=== PATIENT | male | born 1950 | race Hispanic/Latino ===

== ENCOUNTER 2019-01-21 17:16 | Emergency (ER) | payer MEDICARE, OTHER ==
[2019-01-21] MEDS ORDERED: IPRATROPIUM/ALBUTEROL SULFATE 3 ML AMPUL.NEB IH ONE (17:50)
[2019-01-21] MEDS ORDERED: HYDROcodone/ACETAMINOPHEN 5-325 MG TAB PO ONE (17:51)
[2019-01-21] MEDS ORDERED: SODIUM CHLORIDE 0.9% 1000 ML 1,000 ML IV ONE (17:51)
[2019-01-21] MEDS ORDERED: ASPIRIN 325 MG TAB PO ONE (17:51)
[2019-01-21] MEDS ORDERED: NITROGLYCERIN 2% OINT 1 GM TP ONE (17:51)
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
--- NOTE | 2019-01-21 18:23 | XRay Report ---
CHEST 1 VIEW 5:49 PM INDICATION / CLINICAL INFORMATION: Chest pain and pressure. COMPARISON: 01/13/2019. FINDINGS: SUPPORT DEVICES: None. HEART / MEDIASTINUM: The heart size and pulmonary vasculature are normal. The aorta is normal in sofy darnell. LUNGS / PLEURA: No significant pulmonary or pleural abnormality. No pneumothorax. ADDITIONAL FINDINGS: No significant additional findings. IMPRESSION: No acute abnormality or significant change. Signer Name: Jomar Trinidad MD Signed: 01/21/2019 6:19 PM Workstation Name: [id number]
[2019-01-21 18:36] LABS: Basophils % (Auto) 0.4 % (0.0-1.8); Eosinophils # (Auto) 0.1 K/mm3 (0.0-0.4); Hematocrit 37.8 % (35.5-45.6); Hemoglobin 12.4 gm/dl (11.8-15.2); Lymphocytes # (Auto) 1.6 K/mm3 (1.2-5.4); Lymphocytes % (Auto) 13.5 % (13.4-35.0); Mean Corpuscular HGB Conc 33 % (32-34); Mean Corpuscular Volume 94 fl (84-94); Monocytes # (Auto) 1.3 K/mm3 (0.0-0.8); Monocytes % (Auto) 10.8 % (0.0-7.3); Platelet Count 171 K/mm3 (140-440); Red Blood Count 4.04 M/mm3 (3.65-5.03); Red Cell Distribution Width 14.9 % (13.2-15.2)
[2019-01-21 18:46] LABS: INR 1.12 (0.87-1.13); Partial Thromboplastin Time 29.7 Sec. (24.2-36.6)
--- NOTE | 2019-01-21 19:00 | Event Note ---
Date: 01/21/19
[2019-01-21 19:10] LABS: Alanine Aminotransferase 13 units/L (7-56); Albumin 3.8 g/dL (3.9-5); BUN/Creatinine Ratio 23; Bilirubin,Direct 0.2 mg/dL (0-0.2); Blood Urea Nitrogen 25 mg/dL (9-20); Calcium 8.8 mg/dL (8.4-10.2); Hemolysis Index 2
[2019-01-21 20:51] LABS: Bilirubin,Urine NEG (Negative); Blood,Urine NEG (Negative); Color,Urine Yellow (Yellow); Mucus,Urine 2+ /HPF; Protein,Urine <15 mg/dL mg/dL (Negative); Urobilinogen,Urine < 2.0 mg/dL (<2.0)
[2019-01-21 21:04] LABS: Amphetamine Screen,Urine PRESUMPTIVE NEGATIVE; Benzodiazepines Screen,Urine PRESUMPTIVE NEGATIVE; Cannabinoid Screen,Urine PRESUMPTIVE NEGATIVE; Cocaine Screen,Urine PRESUMPTIVE NEGATIVE; Methadone Screen,Urine PRESUMPTIVE NEGATIVE; Opiate Screen,Urine PRESUMPTIVE NEGATIVE
[2019-01-21 21:43] VITALS: BP 128/56
== END 2019-01-21 21:05 | disposition admitted as inpatient to this hospital (09) ==
LOC: ED 17:16
DX: T67.5XXA Heat exhaustion, unspecified, initial encounter (principal); I11.0 Hypertensive heart disease with heart failure; I50.9 Heart failure, unspecified; Z59.0 Homelessness; J44.9 Chronic obstructive pulmonary disease, unspecified; Z87.891 Personal history of nicotine dependence; X58.XXXA Exposure to other specified factors, initial encounter; Z79.899 Other long term (current) drug therapy; Y93.89 Activity, other specified; Y92.89 Other specified places as the place of occurrence of the external cause; Y99.8 Other external cause status
CPT/HCPCS: 36415; 71045; 80048; 80076; 80307; 81001; 83735; 83880; 84484; 85025; 85610; 85730; 93005; 93010; 99285; J7030

== ENCOUNTER 2019-01-24 06:28 | Observation (INO) | payer MEDICARE ==
--- NOTE | 2019-01-24 07:23 | Cat Scan Report ---
CT HEAD WITHOUT CONTRAST INDICATION / CLINICAL INFORMATION: MAIN: LOSS OF CONSCIOUSNESS. FALL. HEADACHE. DIZZINESS.. TECHNIQUE: All CT scans at this location are performed using CT dose reduction for ALARA by means of automated e xposure control. COMPARISON: CT dated 02/15/15 FINDINGS: HEMORRHAGE: None. EXTRA-AXIAL SPACES: Prominent likely related to cortical atrophy. VENTRICULAR SYSTEM: Prominent likely related to central atrophy. No change. 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 No acute territorial in farct. MIDLINE SHIFT OR HERNIATION: None. CEREBELLUM / BRAINSTEM: No significant abnormality. ORBITS: Normal as visualized. SOFT TISSUES of HEAD: No significant abnormality. CALVARIUM: No significant abnormality. PARANASAL SINUSES / MASTOID AIR CELLS: No significant abnormality. ADDITIONAL FINDINGS: None. IMPRESSION: 1. No acute intracranial abnormality. 2. Chronic and age-related findings are unchanged. Signer Name: Dennis Lyon MD Signed: 01/24/2019 7:19 AM Workstation Name: [id number]
[2019-01-24 07:44] LABS: Basophils # (Auto) 0.1 K/mm3 (0.0-0.1); Basophils % (Auto) 0.8 % (0.0-1.8); Eosinophils # (Auto) 0.1 K/mm3 (0.0-0.4); Eosinophils % (Auto) 1.4 % (0.0-4.3); Hematocrit 36.8 % (35.5-45.6); Hemoglobin 12.3 gm/dl (11.8-15.2); Lymphocytes % (Auto) 13.4 % (13.4-35.0); Mean Corpuscular HGB Conc 33 % (32-34); Mean Corpuscular Volume 94 fl (84-94); Platelet Count 172 K/mm3 (140-440); Red Blood Count 3.93 M/mm3 (3.65-5.03); Red Cell Distribution Width 15.4 % (13.2-15.2)
[2019-01-24 07:55] LABS: INR 1.05 (0.87-1.13); Partial Thromboplastin Time 31.9 Sec. (24.2-36.6)
--- NOTE | 2019-01-24 08:11 | XRay Report ---
CHEST 2 VIEWS INDICATION: Difficulty in breathing. COMPARISON: 01/21/2019 FINDINGS: Support devices: None. Heart: Within normal limits. Lungs/pleura: The lungs are mildly hyperinflated but clear. No pleural effusion or pneumothorax is id entified. Additional findings: None. IMPRESSION: Mild hyperinflation. No acute process. Signer Name: Jona Horn Jr, MD Signed: 01/24/2019 8:07 AM Workstation Name: [id number]
[2019-01-24 08:19] LABS: Alanine Aminotransferase 14 units/L (7-56); Albumin 3.8 g/dL (3.9-5); BUN/Creatinine Ratio 19; Blood Urea Nitrogen 23 mg/dL (9-20); Calcium 8.5 mg/dL (8.4-10.2); Hemolysis Index 27
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
[2019-01-24] MEDS ORDERED: IPRATROPIUM/ALBUTEROL SULFATE 3 ML AMPUL.NEB IH ONE (08:30)
[2019-01-24] MEDS ORDERED: KETOROLAC 30 MG/1 ML INJ IV ONE (08:42)
[2019-01-24] MEDS ORDERED: FOLIC ACID 1 MG TAB PO ONE (08:44)
[2019-01-24] MEDS ORDERED: THIAMINE 100 MG TAB PO ONE (08:44)
--- NOTE | 2019-01-24 10:06 | History and Physical Report ---
History of Present Illness Date of examination: 01/24/19 Date of admission: 01/24/19 Chief complaint: Syncope History of present illness: Patient is a 68-year-old male with a past medical history of COPD, CHF, hypertension, past alcohol abuse, and past tobacco use (quit 3 months ago) currently homeless presents to the hospital with syncope. While in the ED the patient informed the triage Nursewas short of breath and unable to fill his received prescribed meds which include an inhaler He informas me that he actually passed out from a change in position He states he had a syncopal episode last night and has a persistent headache. He denies chest pain, shortness of breath, palpitations, nausea, vomiting, or diarrhea. [facility] is [facility] but is outside in hot weather during the daytime. He states he has not been eating or drinking much. Previous medical record review. Patient had a recent cardiac workup performed here at the end of December including CT angiogram chest and stress test. Patient states his last alcohol intake was several months ago. Patient has a sensation that answer crawling on his head and face. Initial work up in the ED was unremarkable except that the patient was lethargic Past History Past Medical History: COPD, hypertension, other (homeless) Past Surgical History: No surgical history Social history: no significant social history, full code, other (homeless). denies: smoking, alcohol abuse Family history: no significant family history Medications and Allergies Allergies Allergy/AdvReac Type Severity Reaction Status Date / Time No Known Allergies Allergy Verified 01/24/19 06:37 Home Medications Medication Instructions Recorded Confirmed Last Taken Type ALBUTEROL Inhaler (OR & NICU) 2 puff IH QID PRN #1 container 01/17/19 01/24/19 Unknown Rx [ProAir HFA Inhaler] Famotidine [Pepcid] 20 mg PO BID #30 tablet 01/17/19 01/24/19 Unknown Rx Nicotine [Habitrol] 21 mg TD QDAY #30 patch 01/17/19 01/24/19 Unknown Rx Carvedilol [Coreg] 3.125 mg PO BID #30 tablet 01/25/19 Unknown Rx Review of Systems All systems: negative Constitutional: fatigue, weakness, lethargy, poor appetite, no weight loss, no weight gain, no fever, no chills, no malaise Cardiovascular: no chest pain, no orthopnea, no palpitations, no rapid/irregular heart beat, no edema, no lightheadedness, no shortness of breath Respiratory: no cough, no cough with sputum, no excessive sputum, no hemoptysis, no shortness of breath, no dyspnea on exertion, no congestion, no wheezing Gastrointestinal: no abdominal pain, no nausea, no vomiting, no change in bowel habits, no melena Genitourinary Male: no dysuria, no discharge, no urinary hesitancy, no nocturia, no difficulties fathering child Musculoskeletal: no neck pain, no arm numbness/tingling, no leg numbness/tingling, no muscle cramps Integumentary: rash, no wounds, no jaundice, no bullae, no darkening of skin, no depigmentation, no striae, no foot/leg ulcers Neurological: no paralysis, no numbness, no syncope, no tremors, no migraines, no tic, no change in mentation, no memory loss, no sensory deficit, no hearing difficulties Psychiatric: no change in sleep habits, no change in appetite, no suicidal ideation, no hopelessness, no difficulties concentrating, no sa dness/tearfullness Endocrine: no cold intolerance Exam - Constitutional Vitals: Temp Pulse Resp BP Pulse Ox 98.7 F 66 12 148/70 99 01/24/19 08:33 01/24/19 08:37 01/24/19 08:37 01/24/19 08:33 01/24/19 08:33 General appearance: Present: no acute distress, disheveled - EENT Eyes: Present: PERRL, EOM intact ENT: hearing intact, clear oral mucosa, poor dentition - Neck Neck: Present: supple, normal ROM - Respiratory Respiratory effort: normal Respiratory: bilateral: CTA - Cardiovascular Rhythm: regular Heart Sounds: Present: S1 & S2. Absent: gallop, systolic murmur - Extremities Extremities: no ischemia, pulses intact, pulses symmetrical, No edema, normal temperature, abnormal Peripheral Pulses: within normal limits - Abdominal General gastrointestinal: Present: soft, non-tender, non-distended, normal bowel sounds - Integumentary Integumentary: Present: warm, dry - Musculoskeletal Musculoskeletal: strength equal bilaterally, generalized weakness - Psychiatric Psychiatric: appropriate mood/affect, intact judgment & insight, memory intact - Neurologic Neurologic: CNII-XII intact, moves all extremities - Allied Health Allied health notes reviewed: nursing Results - Labs CBC & Chem 7: 01/25/19 05:23 01/25/19 05:23 Labs: Laboratory Last Values WBC 7.6 K/mm3 (4.5-11.0) 01/24/19 07:24 RBC 3.93 M/mm3 (3.65-5.03) 01/24/19 07:24 Hgb 12.3 gm/dl (11.8-15.2) 01/24/19 07:24 Hct 36.8 % (35.5-45.6) 01/24/19 07:24 MCV 94 fl (84-94) 01/24/19 07:24 MCH 31 pg (28-32) 01/24/19 07:24 MCHC 33 % (32-34) 01/24/19 07:24 RDW 15.4 % (13.2-15.2) H 01/24/19 07:24 Plt Count 172 K/mm3 (140-440) 01/24/19 07:24 Lymph % (Auto) 13.4 % (13.4-35.0) 01/24/19 07:24 [place] % (Auto) 13.0 % (0.0-7.3) H 01/24/19 07:24 Eos % (Auto) 1.4 % (0.0-4.3) 01/24/19 07:24 Baso % (Auto) 0.8 % (0.0-1.8) 01/24/19 07:24 Lymph # 1.0 K/mm3 (1.2-5.4) L 01/24/19 07:24 [place] # 1.0 K/mm3 (0.0-0.8) H 01/24/19 07:24 Eos # 0.1 K/mm3 (0.0-0.4) 01/24/19 07:24 Baso # 0.1 K/mm3 (0.0-0.1) 01/24/19 07:24 Seg Neutrophils % 71.4 % (40.0-70.0) H 01/24/19 07:24 Seg Neutrophils # 5.4 K/mm3 (1.8-7.7) 01/24/19 07:24 PT 13.4 Sec. (12.2-14.9) 01/24/19 07:24 INR 1.05 (0.87-1.13) 01/24/19 07:24 APTT 31.9 Sec. (24.2-36.6) 01/24/19 07:24 Sodium 145 mmol/L (137-145) 01/24/19 07:24 Potassium 4.1 mmol/L (3.6-5.0) 01/24/19 07:24 Chloride 107.2 mmol/L (98-107) H 01/24/19 07:24 Carbon Dioxide 26 mmol/L (22-30) 01/24/19 07:24 Anion Gap 16 mmol/L 01/24/19 07:24 BUN 23 mg/dL (9-20) H 01/24/19 07:24 Creatinine 1.2 mg/dL (0.8-1.5) 01/24/19 07:24 Estimated GFR > 60 ml/min 01/24/19 07:24 BUN/Creatinine Ratio 19 % 01/24/19 07:24 Glucose 106 mg/dL (75-100) H 01/24/19 07:24 Calcium 8.5 mg/dL (8.4-10.2) 01/24/19 07:24 Total Bilirubin 0.40 mg/dL (0.1-1.2) 01/24/19 07:24 AST 15 units/L (5-40) 01/24/19 07:24 ALT 14 units/L (7-56) 01/24/19 07:24 Alkaline Phosphatase 80 units/L (35-129) 01/24/19 07:24 Troponin T < 0.010 ng/mL (0.00-0.029) 01/24/19 07:24 NT-Pro-B Natriuret Pep 616.1 pg/mL (0-900) 01/24/19 07:24 Total Protein 5.8 g/dL (6.3-8.2) L 01/24/19 07:24 Albumin 3.8 g/dL (3.9-5) L 01/24/19 07:24 Albumin/Globulin Ratio 1.9 % 01/24/19 07:24 Plasma/Serum Alcohol < 0.01 % (0-0.07) 01/24/19 07:24 Assessment and Plan Assessment and plan: Patient is a 68-year-old male with a past medical history of COPD, CHF, hyper tension, past alcohol abuse, and past tobacco use (quit 3 months ago) currently homeless presents to the hospital with syncope. While in the ED the patient informed the triage Nursewas short of breath and unable to fill his received prescribed meds which include an inhaler He informas me that he actually passed out from a change in position He states he had a syncopal episode last night and has a persistent headache. He denies chest pain, shortness of breath, palpitations, nausea, vomiting, or diarrhea. [facility] is [facility] but is outside in hot weather during the daytime. He states he has not been eating or drinking much. Previous medical record review. Patient had a recent cardiac workup performed here at the end of December including CT angiogram chest and stress test. Patient states his last alcohol intake was several months ago. Patient has a sensation that answer crawling on his head and face. Initial work up in the ED was unremarkable except that the patient was lethargic Syncope COPD HTN CHF Plan Admit to [facility] unit Resume home meds Hydrate patient Obtain echo cardiogram Cardiology eval Advance Directives: Yes Plan of care discussed with patient/family: Yes
[2019-01-24] MEDS ORDERED: ALBUTEROL 8.5 GM INHALATION IH PRN (10:08)
[2019-01-24] MEDS ORDERED: ACETAMINOPHEN 325 MG TAB PO PRN (10:08)
[2019-01-24] MEDS ORDERED: ALBUTEROL 2.5 MG/3 ML NEBU IH PRN (10:08)
[2019-01-24] MEDS ORDERED: ONDANSETRON 4 MG/2 ML INJ IV PRN (10:08)
--- NOTE | 2019-01-24 10:55 | Consultation ---
History of Present Illness Consult date: 01/24/19 Requesting physician: DECLAN RODRIGUEZ Consult reason: syncope History of present illness: The pt is a 68-year-old male with a past medical history of COPD, HTN, past alcohol abuse, and past tobacco use (quit 3 months ago). He is currently homeless. He presented for evaluation following syncopal episode. Pt states he was outside all day yesterday in the heat. He was sitting outside [place] [facility] and bent over to potato picker his hat when he suddenly lost consciousness. He denies any occurrence of chest pain, palpitations, n/v or dizziness. He reports SOB which is chronic secondary to COPD and unchanged from baseline. He only remembers feeling very hot and then waking up on the ground. He did sustain an abrasion to his nose during the fall. He thinks he was unconscious for approx 1 minute. When he awoke, he noted a headache which persisted through the night. He states he has not been eating or drinking much as he cannot afford food or water. Of note, he was discharged from [facility] on 01/17 following eval/treatment for COPD exacerbation and chest pain. He underwent lexiscan MPI stress test on 01/17 which was negative. Echo done 09/2015 showed EF 55-60%. Past History Past Medical History: COPD, hypertension Social history: smoking (former), alcohol abuse (former) Medications and Allergies Allergies Allergy/AdvReac Type Severity Reaction Status Date / Time No Known Allergies Allergy Verified 01/24/19 06:37 Home Medications Medication Instructions Recorded Confirmed Last Taken Type ALBUTEROL Inhaler (OR & NICU) 2 puff IH QID PRN #1 container 01/17/19 Unknown Rx [ProAir HFA Inhaler] Famotidine [Pepcid] 20 mg PO BID #30 tablet 01/17/19 Unknown Rx Nicotine [Habitrol] 21 mg TD QDAY #30 patch 01/17/19 Unknown Rx Active Meds: Active Medications Acetaminophen (Tylenol) 650 mg PO Q4H PRN PRN Reason: Pain MILD(1-3)/Fever >100.5/RANDLE Albuterol (Proair) 2 puff IH QID PRN PRN Reason: Shortness Of Breath Albuterol (Proventil) 2.5 mg IH Q3HRT PRN PRN Reason: Shortness Of Breath Budesonide (Pulmicort) 0.5 mg IH Q12HRT [facility] Famotidine (Pepcid) 20 mg PO BID PHILIPP Nicotine (Habitrol) 21 mg TD QDAY [facility] Ondansetron HCl (Zofran) 4 mg IV Q8H PRN PRN Reason: Nausea And Vomiting Sodium Chloride (Sodium Chloride Flush Syringe 10 Ml) 10 ml IV BID [facility] Sodium Chloride (Sodium Chloride Flush Syringe 10 Ml) 10 ml IV PRN PRN PRN Reason: LINE FLUSH Review of Systems Constitutional: no weight loss, no weight gain, no fever, no chills Ears, nose, mouth and throat: no ear pain, no nose pain, no sinus pressure, no sinus pain Cardiovascular: syncope, shortness of breath (chronic), dyspnea on exertion (chronic), no chest pain, no orthopnea, no palpitations, no rapid/irregular heart beat, no edema, no lightheadedness, no paroxysmal nocturnal dyspnea Respiratory: shortness of breath (chronic), dyspnea on exertion (chronic), no cough, no congestion, no wheezing, no pain on inspiration Genitourinary Male: no dysuria, no hematuria, no flank pain, no discharge, no urinary frequency, no urinary hesitancy Musculoskeletal: no neck stiffness, no neck pain, no shooting arm pain, no arm numbness/tingling, no low back pain, no shooting leg pain Integumentary: no rash, no pruritis, no redness, no sores, no wounds Neurological: syncope, no head injury, no paralysis, no weakness, no parathesias, no numbness, no tingling, no seizures Psychiatric: no anxiety Endocrine: no cold intolerance, no heat intolerance Hematologic/Lymphatic: no easy bruising, no easy bleeding Allergic/Immunologic: no urticaria, no wheezing Physical Examination Vital Signs Temp Pulse Resp BP Pulse Ox 97.7 F 84 20 132/69 95 01/24/19 06:30 01/24/19 06:30 01/24/19 06:30 01/24/19 06:30 01/24/19 06:30 General appearance: no acute distress HEENT: Positive: PERRL, Normocephaly, Mucus Membranes Moist Neck: Positive: neck supple, trachea midline Cardiac: Positive: Reg Rate and Rhythm, S1/S2 Lungs: Positive: Decreased Breath Sounds Neuro: Positive: Grossly Intact Abdomen: Negative: Tender Skin: Positive: Other (abrasion on nose). Negative: Rash Musculoskeletal: No Pain Extremities: Absent: edema Results 01/24/19 07:24 01/24/19 07:24 Cardiac Enzymes 01/24/19 Range/Units 07:24 AST 15 (5-40) units/L Coagulation 01/24/19 Range/Units 07:24 PT 13.4 (12.2-14.9) Sec. INR 1.05 (0.87-1.13) APTT 31.9 (24.2-36.6) Sec. CBC 01/24/19 Range/Units 07:24 WBC 7.6 (4.5-11.0) K/mm3 RBC 3.93 (3.65-5.03) M/mm3 Hgb 12.3 (11.8-15.2) gm/dl Hct 36.8 (35.5-45.6) % Plt Count 172 (140-440) K/mm3 Lymph # 1.0 L (1.2-5.4) K/mm3 [place] # 1.0 H (0.0-0.8) K/mm3 Eos # 0.1 (0.0-0.4) K/mm3 Baso # 0.1 (0.0-0.1) K/mm3 Comprehensive Metabolic Panel 01/24/19 Range/Units 07:24 Sodium 145 (137-145) mmol/L Potassium 4.1 (3.6-5.0) mmol/L Chloride 107.2 H (98-107) mmol/L Carbon Dioxide 26 (22-30) mmol/L BUN 23 H (9-20) mg/dL Creatinine 1.2 (0.8-1.5) mg/dL Glucose 106 H (75-100) mg/dL Calcium 8.5 (8.4-10.2) mg/dL AST 15 (5-40) units/L ALT 14 (7-56) units/L Alkaline Phosphatase 80 (35-129) units/L Total Protein 5.8 L (6.3-8.2) g/dL Albumin 3.8 L (3.9-5) g/dL - Imaging and Cardiology Echo: report reviewed (09/2015 showed EF 55-60%. ) EKG: report reviewed, image reviewed EKG interpretations - Telemetry EKG Rhythm: Sinus Rhythm - EKG Sinus rhythms and dysrhythmias: sinus rhythm Assessment and Plan Syncope Suspect secondary to heat and dehydration. Head CT with NAF. Trop negative for AMI x 1. ECG with NAF. Lexiscan MPI stress test on 01/17/2019 was negative. Obtain echo. HTN COPD H/o ETOH use and tobacco use Homelessness The patient has been seen in conjunction with Dr. Dahl who agrees with the assessment and plan of care.
[2019-01-24] MEDS: BUDESONIDE 0.5 MG/2 ML NEBU IH SCH (20:04)
[2019-01-24] MEDS: FAMOTIDINE 20 MG TAB PO SCH (21:39)
[2019-01-25 06:31] LABS: Basophils % (Auto) 0.3 % (0.0-1.8); Eosinophils # (Auto) 0.1 K/mm3 (0.0-0.4); Eosinophils % (Auto) 1.8 % (0.0-4.3); Hematocrit 33.9 % (35.5-45.6); Hemoglobin 11.5 gm/dl (11.8-15.2); Lymphocytes # (Auto) 1.2 K/mm3 (1.2-5.4); Lymphocytes % (Auto) 16.5 % (13.4-35.0); Mean Corpuscular HGB Conc 34 % (32-34); Mean Corpuscular Volume 93 fl (84-94); Monocytes # (Auto) 0.7 K/mm3 (0.0-0.8); Monocytes % (Auto) 9.4 % (0.0-7.3); Platelet Count 158 K/mm3 (140-440); Red Blood Count 3.65 M/mm3 (3.65-5.03); Red Cell Distribution Width 15.3 % (13.2-15.2)
[2019-01-25 06:46] LABS: BUN/Creatinine Ratio 28; Blood Urea Nitrogen 25 mg/dL (9-20); Calcium 8.4 mg/dL (8.4-10.2); Hemolysis Index 31
[2019-01-25] MEDS ORDERED: SODIUM CHLORIDE 0.9% 1000 ML 1,000 ML IV ONE (07:21)
--- NOTE | 2019-01-25 07:26 | Discharge Summary ---
Providers - Providers Date of Admission: 01/24/19 09:53 Attending physician: DECLAN RODRIGUEZ MD 01/24/19 Consult to Case Management [CONS] Routine Services Needed at Discharge: Fabrication Specialist Notified:: DORINDA Friedman Physician Instructions: homeless 01/24/19 10:10 Consult to Physician [CONS] Routine Comment: Consulting Provider: ELSY AGOSTO Physician Instructions: Reason For Exam: syncope [facility] Reason for admission: syncope Condition: Stable Hospital course: 68-year-old male with a past medical history of COPD, CHF, hypertension, past alcohol abuse, and past tobacco use (quit 3 months ago) presents to the hospital with syncope. As per triage is stated that patient was short of breath and unable to fill his received prescribed meds which include an inhaler. H&H and denies shortness of breath to me upon interview. He states he had a syncopal ep isode last night and has a persistent headache. He denies chest pain, shortness of breath, palpitations, nausea, vomiting, or diarrhea. Patient is homeless and [facility] but is outside in hot weather during the daytime. He states he has not been eating or drinking much. Previous medical record review. Patient had a recent cardiac workup performed here at the end of December including CT angiogram chest and stress test. Patient states his last alcohol intake was several months ago. Patient has a sensation that answer crawling on his head and face. work up including stress test was negative. patient discharged following cardiology eval and recommended to follow with cardiology outpatient. a Syncope due to heat exhustion Homelesss COPD STABLE CHF Disposition: DC/TX-70 ANOTHER TYPE HLTHCARE Time spent for discharge: 35 mins Core Measure Documentation - Palliative Care Palliative Care/ Comfort Measures: Not Applicable - Core Measures Any of the following diagnoses?: none Exam - Physical Exam Narrative exam: General appearance: Present: no acute distress, - EENT Eyes: Present: PERRL, EOM intact ENT: hearing intact, clear oral mucosa, poor dentition - Neck Neck: Present: supple, normal ROM - Respiratory Respiratory effort: normal Respiratory: bilateral: CTA - Cardiovascular Rhythm: regular Heart Sounds: Present: S1 & S2. Absent: gallop, systolic murmur - Extremities Extremities: no ischemia, pulses intact, pulses symmetrical, No edema, normal temperature, abnormal Peripheral Pulses: within normal limits - Abdominal General gastrointestinal: Present: soft, non-tender, non-distended, normal bowel sounds - Integumentary Integumentary: Present: warm, dry - Musculoskeletal Musculoskeletal: strength equal bilaterally, generalized weakness - Psychiatric Psychiatric: appropriate mood/affect, intact judgment & insight, memory intact - Neurologic Neurologic: CNII-XII intact, moves all extremities - Allied Health Allied health notes reviewed: nursing - Constitutional Vitals: Temp Pulse Resp BP Pulse Ox 97.6 F 71 18 175/76 94 01/25/19 02:16 01/25/19 02:16 01/25/19 02:16 01/25/19 02:16 01/25/19 02:16 Plan Activity: advance as tolerated, fall precautions Diet: low salt Special Instructions: record daily BP diary Follow up with: DONAVAN HINOJOSA MD [Primary Care Provider] - 7 Days PAOLA MENDIETA MD [Staff Physician] - 14 Days Prescriptions: Carvedilol [Coreg] 3.125 mg PO BID #30 tablet
[2019-01-25] MEDS: BUDESONIDE 0.5 MG/2 ML NEBU IH SCH (09:05)
[2019-01-25] MEDS: FAMOTIDINE 20 MG TAB PO SCH (09:14)
[2019-01-25] MEDS ORDERED: carvediloL 3.125 MG TAB PO SCH (10:00)
[2019-01-25] MEDS ORDERED: NICOTINE 21 MG/24 HR PATCH TD SCH (10:00)
[2019-01-25] MEDS ORDERED: hydroCHLOROthiazide 25 MG TAB PO SCH (10:00)
--- NOTE | 2019-01-25 10:31 | Progress Note ---
Assessment and Plan Syncope Likely orthostatic, possibly r/t heat and dehydration. Head CT with NAF. Trop negative for AMI x 2. ECG with NAF. Lexiscan MPI stress test on 01/17/2019 was negative. Echo reviewed - EF 55-60%, no significant abnormalities. Tele reviewed - in SR, no acute events noted since admission. HTN COPD H/o ETOH use and tobacco use Homelessness Currently stable cardiac status. Pt may discharge from cardiology standpoint. Recommend follow up in our office with Dr. Dahl within 1-2 weeks of hospital discharge ([phone]). The patient has been seen in conjunction with Dr. Dahl who agrees with the assessment and plan of care. Subjective Date of service: 01/25/19 Principal diagnosis: syncope Interval history: pt ambulating around room, no current complaints, states he is feeling well. in SR on tele with no acute events noted overnight. Objective Last Vital Signs Temp 98.0 F 01/25/19 07:36 Pulse 72 01/25/19 09:05 Resp 20 01/25/19 09:05 BP 153/77 01/25/19 10:10 Pulse Ox 96 01/25/19 09:08 - Physical Examination General: No Apparent Distress HEENT: Positive: PERRL, Normocephaly, Mucus Membranes Moist Neck: Positive: neck supple, trachea midline Cardiac: Positive: Reg Rate and Rhythm, S1/S2 Lungs: Positive: Decreased Breath Sounds Neuro: Positive: Grossly Intact Abdomen: Negative: Tender Skin: Positive: Other (abrasion on nose). Negative: Rash Musculoskeletal: No Pain Extremities: Absent: edema - Labs and Meds CBC 01/25/19 Range/Units 05:23 WBC 7.0 (4.5-11.0) K/mm3 RBC 3.65 (3.65-5.03) M/mm3 Hgb 11.5 L (11.8-15.2) gm/dl Hct 33.9 L (35.5-45.6) % Plt Count 158 (140-440) K/mm3 Lymph # 1.2 (1.2-5.4) K/mm3 [place] # 0.7 (0.0-0.8) K/mm3 Eos # 0.1 (0.0-0.4) K/mm3 Baso # 0.0 (0.0-0.1) K/mm3 Comprehensive Metabolic Panel 01/25/19 Range/Units 05:23 Sodium 145 (137-145) mmol/L Potassium 4.0 (3.6-5.0) mmol/L Chloride 108.5 H (98-107) mmol/L Carbon Dioxide 26 (22-30) mmol/L BUN 25 H (9-20) mg/dL Creatinine 0.9 (0.8-1.5) mg/dL Glucose 94 (75-100) mg/dL Calcium 8.4 (8.4-10.2) mg/dL - Imaging and Cardiology EKG: report reviewed, image reviewed Echo: report reviewed (09/2015 showed EF 55-60%. ) - Telemetry EKG Rhythm: Sinus Rhythm - EKG Sinus rhythms and dysrhythmias: sinus rhythm
[2019-01-25 15:15] VITALS: BP 166/77
== END 2019-01-25 17:30 | disposition other institution (70) ==
LOC: ED 06:28 → 2B-ACE 09:53 → INTOOBSV 09:53
PROVIDERS: ADMIT Internal Medicine; ATTEND Internal Medicine
DX: R55 Syncope and collapse (principal); J44.9 Chronic obstructive pulmonary disease, unspecified; I11.0 Hypertensive heart disease with heart failure; I50.9 Heart failure, unspecified; Z87.891 Personal history of nicotine dependence
CPT/HCPCS: 36415; 70450; 71046; 80048; 80053; 83880; 84484; 85025; 85610; 85730; 87116; 93005; 93010; 93306; 94640; 94644; 96361; 96374; 99284; 99406; G0378; J1885; J7030; 80320; G0480